=== PATIENT | male | born 1945 | race Caucasian/White ===

== ENCOUNTER 2021-11-20 18:11 | Emergency (ER) | payer OTHER ==
[~2021-11-20 18:11] MED LIST: ASPIR-LOW81 MG PO; CYMBALTA 30MG C30 MG PO; HCTZ25 MG PO; KEFLEX250 MG PO; L-LYSINE500 MG PO; NORCO 5-325 TA1 EACH PO; NORVASC5 MG PO; PRILOSEC20 MG PO
[2021-11-20 19:18] LABS: BASOPHIL 0.6 % (0-2); EOSINOPHIL 1.2 % (0-7); HCT 44.3 % (42.0-52.0); LYMPHOCYTE 16.6 % (15-48); MCH 27.8 pg (25.0-31.0); MCHC 33.9 g/dL (32.0-36.0); MONOCYTE 5.2 % (0-12); MPV 8.7 fL (6.0-9.5); NRBC 0; PLT 315 K/uL (150-400); RDW 13.4 % (11.5-14.0); WBC 6.9 K/uL (4.0-10.5)
[2021-11-20 19:41] LABS: ALBUMIN 3.9 g/dL (3.4-5.0); BILIRUBIN - TOTAL 0.8 mg/dL (0.2-1.0); BUN/CREAT RATIO (CALC) 23.1 RATIO; CREATININE 1.08 mg/dL (0.67-1.17); GLOBULIN (CALCULATION) 3.5 g/dL; POTASSIUM 3.1 mmol/L (3.5-5.1); TOTAL PROTEIN 7.4 g/dL (6.4-8.2)
[2021-11-20 19:44] LABS: LACTIC ACID 1.5 mmol/L (0.4-1.9)
[2021-11-20 21:31] LABS: BILIRUBIN NEGATIVE (NEGATIVE); BLOOD NEGATIVE Ery/uL (NEGATIVE); CLARITY CLEAR (CLEAR); COLOR YELLOW (YELLOW); GLUCOSE (U) NORMAL (NORMAL); LEUKOCYTES NEGATIVE Leu/uL (NEGATIVE); NITRITE NEGATIVE (NEGATIVE); PROTEIN 2+ mg/dL (NEGATIVE); SPECIFIC GRAVITY 1.025 (1.001-1.030)
[2021-11-20 21:45] LABS: AMORPHOUS URATES CRYSTALS TRACE; BACTERIA TRACE
[2021-11-21 04:58] LABS: CORONAVIRUS 2019 SARS-COV-2 NEGATIVE (NEGATIVE); INFLUENZA A NAA NEGATIVE (NEGATIVE)
== END 2021-11-21 11:31 | disposition other institution (70) ==
LOC: FER 18:11
PROVIDERS: Internal Medicine; Nurse Practitioner Family
DX: R51.9 Headache, unspecified (principal); H53.2 Diplopia; R11.0 Nausea; G20 Parkinson's disease; Z88.8 Allergy status to other drugs, medicaments and biological substances; Z88.1 Allergy status to other antibiotic agents; Z20.822 Contact with and (suspected) exposure to COVID-19
CPT/HCPCS: 36415; 70450; 80053; 81001; 82150; 83605; 83690; 83880; 84145; 84484; 85025; 87040; 93005; 96372; J2060; J2405; J2765; J3030; J3475; J3490; J7030; Q9967; U0002